=== PATIENT | male | born 1975 | race Two or more races ===

== ENCOUNTER 2022-06-14 08:43 | Observation (INO) | payer OTHER ==
[2022-06-14 08:57] VITALS: BMI 33.3
[2022-06-14] MEDS ORDERED: SUCRALFATE 1 GM TABLET (FP) ONE (11:14)
[2022-06-14] MEDS ORDERED: FAMOTIDINE 20 MG TABLET ONE (11:14)
[2022-06-14] MEDS ORDERED: ACETAMINOPHEN 325 MG TABLET (FP) ONE ×2 (11:14→18:37)
[2022-06-14] MEDS ORDERED: SUCRALFATE 1 GM/10 ML UNIT DOSE CUPS PO SCH (11:15)
[2022-06-14] MEDS ORDERED: ACETAMINOPHEN 325 MG TABLET (FP) PO ONE (11:15)
[2022-06-14] MEDS ORDERED: SUCRALFATE 1 GM TABLET (FP) PO ONE (11:15)
[2022-06-14] MEDS ORDERED: FAMOTIDINE 20 MG TABLET PO ONE (11:15)
[2022-06-14] MEDS ORDERED: MAG HYDROX/AL HYDROX/SIMETH 30 ML UNIT-DOSE CUP ONE (11:15)
[2022-06-14] MEDS ORDERED: MAG HYDROX/AL HYDROX/SIMETH 30 ML UNIT-DOSE CUP PO ONE (11:15)
[2022-06-14 11:32] LABS: BASO % 0.4 % (0-2.0); EOS % 0.6 % (0-4.5); HEMATOCRIT 42.2 % (35.4-49); HEMOGLOBIN 14.1 GM/dL (11.7-16.9); LYMPH % 7.8 % (8-40); MCH 27.5 pg (25.7-33.7); MCHC 33.4 g/dl (32.0-35.9); MEAN CELL VOLUME 82.4 fl (80-96); MEAN PLT VOLUME 10.9 fl (7.5-11.1); MONO % 9.2 % (3.8-10.2); PLATELET COUNT 230 10^3/uL (134-434); RBC 5.12 M/mm3 (4.00-5.60); RDW 13.1 % (11.9-15.9); WHITE BLOOD COUNT 12.3 K/mm3 (4.0-10.0)
[2022-06-14 11:46] LABS: INR 1.15 (0.83-1.09); PROTHROMBIN TIME (PATIENT) 13.3 SEC (9.7-13.0)
[2022-06-14 11:48] LABS: ACTIVATED PTT 25.8 SECONDS (25.2-36.5)
[2022-06-14 12:04] LABS: ALBUMIN 4.2 g/dl (3.4-5.0); BLOOD UREA NITROGEN 16.5 mg/dL (7-18); MAGNESIUM 2.1 mg/dL (1.8-2.4)
[2022-06-14 12:07] LABS: CREATININE 1.2 mg/dL (0.55-1.3)
[2022-06-14 12:08] LABS: BILIRUBIN,TOTAL 1.5 mg/dL (0.2-1); TOT PROT 7.6 g/dl (6.4-8.2)
[2022-06-14] MEDS ORDERED: SODIUM CHLORIDE 0.9% 500 ML INFUS.BAG IV ONE (12:14)
[2022-06-14] MEDS ORDERED: PIPERACILLIN/TAZOB 4.5 GM 4.5 GM in DEXTROSE 5%-WATER 100 ML IVPB ONE (15:22)
[2022-06-14] MEDS ORDERED: PIPERACILLIN/TAZOB 4.5 GM 4.5 GM/100 ML BAG IVPB ONE (15:46)
[2022-06-14] MEDS ORDERED: DEXTROSE 5%-LACTATED RINGERS 1,000 ML IV SCH (16:15)
[2022-06-14] MEDS: DEXTROSE 5%-NORMAL SALINE 1,000 ML IV SCH (18:04)
[2022-06-15] MEDS: DEXTROSE 5%-NORMAL SALINE 1,000 ML IV SCH (06:33)
[2022-06-15 09:48] LABS: BASO % 0.7 % (0-2.0); EOS % 3.4 % (0-4.5); HEMATOCRIT 38.8 % (35.4-49); HEMOGLOBIN 12.8 GM/dL (11.7-16.9); LYMPH % 21.5 % (8-40); MCH 27.7 pg (25.7-33.7); MEAN CELL VOLUME 83.8 fl (80-96); MEAN PLT VOLUME 10.3 fl (7.5-11.1); MONO % 11.5 % (3.8-10.2); NEUT % 62.9 % (42.8-82.8); PLATELET COUNT 207 10^3/uL (134-434); RBC 4.62 M/mm3 (4.00-5.60); RDW 13.2 % (11.9-15.9); WHITE BLOOD COUNT 6.2 K/mm3 (4.0-10.0)
[2022-06-15] MEDS ORDERED: CEFTRIAXONE 1 GM in DEXTROSE 5%-WATER - 50 ML IVPB SCH (10:00)
[2022-06-15 10:16] LABS: CALCIUM 8.4 mg/dL (8.5-10.1)
[2022-06-15 10:17] LABS: ALBUMIN 3.5 g/dl (3.4-5.0); BLOOD UREA NITROGEN 11.4 mg/dL (7-18)
[2022-06-15 10:21] LABS: TOT PROT 6.6 g/dl (6.4-8.2)
[2022-06-15 15:37] VITALS: BP 136/77; PULSE 69; RESP 20; TEMP 98.6
== END 2022-06-15 17:02 | disposition home or self-care (01) ==
LOC: JER 08:43 → JERBED 15:28 → UNDOADMOB 15:28 → INTOOBSV 15:28 → JERBED 16:03 → J5S 21:51 → JERBED 21:51 → J5S 23:34
PROVIDERS: ADMIT Internal Medicine; ATTEND Internal Medicine
PROC: 3E03329 Introduction of Other Anti-infective into Peripheral Vein, Percutaneous Approach (ICD-10-PCS; principal; 2022-06-14)
PROC: 3E0337Z Introduction of Electrolytic and Water Balance Substance into Peripheral Vein, Percutaneous Approach (ICD-10-PCS; 2022-06-14)
PROC: 3E033NZ Introduction of Analgesics, Hypnotics, Sedatives into Peripheral Vein, Percutaneous Approach (ICD-10-PCS; 2022-06-14)
PROC: 3E033GC Introduction of Other Therapeutic Substance into Peripheral Vein, Percutaneous Approach (ICD-10-PCS; 2022-06-14)
DX: K81.0 Acute cholecystitis (principal); E66.8 Other obesity; Z68.33 Body mass index [BMI] 33.0-33.9, adult
CPT/HCPCS: 0241U-QW; 36415; 71046-TC-FY; 74181-TC; 76705-TC; 80053; 83690; 83735; 84484; 85025; 85610; 85730; 86705; 86709; 86850; 86900; 86901; 87340; 87517; 93005; 93010; 99285-25; G0378